=== PATIENT | male | born 1955 | race Caucasian/White ===

== ENCOUNTER → 2017-07-19 | Outpatient (CLI) | payer MEDICARE, OTHER ==
[~2017-07-19] MED LIST: ALBUTEROL17 GM INH; ALPRAZOLAM PO; ASPIRIN PO; ASPIRIN81 M1 PO; ASPIRIN81 M2 PO; AUGMENTIN PO; CELEXA PO; CELEXA10 MG PO; COUMADIN2.5 MG PO; COUMADIN5 MG PO; DURAGESIC1 EACH TD; ENDOCET 10-3251 TAB PO; FENTAN; FENTANYL; FLEXERIL10 M1 PO; GABAPENTIN600 MG PO; HEART MED; INDOCET; JALYN 0.5-0.41 EACH PO; KLONOPIN1 MG PO; KLONOPIN2 MG PO; LIPITOR20 MG PO; LOVENOX80 MG/0.8 INJ; MED FOR RESTLESS LEG; MORPHINE; MORPHINE PUMP; MORPHINE PUMP IL; NEURONTIN300 MG PO; OMEPRAZOLE40 M1 PO; OXYCODONE HCL10 MG PO; PERCOCET 10/3251 TAB PO; PERCOCET10 PO; PRILOSEC PO; PRILOSEC20 M1 PO; REQUIP0.25 MG PO; ROBAXIN PO; ROPINIROLE HC0.25 MG PO; SYMBICORT INH; TEMAZEPAM; VICODIN 5/1 TAB 5/50 PO; XANAX1 MG PO; ZANTAC PO
--- NOTE | ~2017-07-19 | MY26 ---
[facility] A Service of [facility] & [facility] RADIOLOGY TEXT RESULTS PATIENT: KAVEH SHRESTHA LOCATION: [facility] : 55 UNIT #: [id number] AGE: [address]: Bandar Soriano MD SEX: M ORDER DR: [id number] [facility] [address] [place], [place] [address] [id number] O MR#: [id number] Acc #: [id number] NAME: KAVEH SHRESTHA : 1955 SEX: M STUDY DATE/TIME: 07/19/2017 10:09 UNIT: [facility] ROOM: STUDY DESCRIPTION: [facility] W/ CAD BILAT Attending Physician: Bandar Soriano M.D. Referring Physician: Bandar Soriano M.D. Ordering Physician: Bandar Soriano M.D. Primary Care Physician: Bandar Soriano M.D. MEDICAL IMAGING REPORT This report is preliminary unless electronic signature is present EXAM Bilateral digital diagnostic mammogram with CAD. DATE 07/19/2017 HISTORY Left breast pain and palpable tenderness for the past couple of months. COMPARISON None FINDINGS CC and MLO views were obtained of the left breast utilizing digital technique and MLO views obtained of the right breast for comparison purposes. The study was reviewed with an FDA-approved CAD device. Heterogeneously dense fibroglandular tissue is demonstrated in the subareolar regions of each breast, left greater than right. The left breast demonstrates fibroglandular tissue which has a flame-shaped or dendritic pattern, most in keeping with benign asymmetric gynecomastia. No suspicious focal nodule, architectural distortion, or microcalcification is seen. There is no abnormal skin thickening or nipple retraction. IMPRESSION BIRADS 2. Benign findings. Features of bilateral gynecomastia, most pronounced in the left breast. The gynecomastia in the left breast corresponds to the patient's history of tenderness and palpable complaint. Patient states that he does have a history of recreational marijuana use which could contribute to the aforementioned findings. Any further management can be based upon clinical assessment. Certainly, if the breast tenderness or cosmetic change is of concern to the patient, breast STS. [facility] A Service of [facility] & [facility] RADIOLOGY TEXT RESULTS PATIENT: KAVEH SHRESTHA LOCATION: [facility] : 55 UNIT #: [id number] AGE: [address]: Bandar Soriano MD SEX: M ORDER DR: surgical consultation could be contemplated. Findings and recommendations were discussed with the patient today in the radiology department. Patients over the age of 40 are entered into a reminder system with target due date for the next mammogram. A result letter will also be sent to the patient. BIRADS: 2 Benign finding. Dictated by... Denise Weinberg M.D. THIS IS AN ELECTRONICALLY VERIFIED REPORT Denise Weinberg M.D. at 07/20/2017 1:52 PM EFREN/gabi TD: 07/19/2017 12:01 JOB #: [id number] MEDICAL IMAGING REPORT Page 1 of 1 COPY
== END | disposition home or self-care (01) ==
LOC: CMAM 07-03 08:30
DX: N64.4 Mastodynia (principal); N62 Hypertrophy of breast
CPT/HCPCS: G0204